=== PATIENT | male | born 1940 | race Caucasian/White ===

== ENCOUNTER 2020-05-31 22:00 | Emergency (ER) | payer MEDICARE ==
--- NOTE | 2020-05-31 22:35 | EDM.PDOC ---
ED HPI GENERAL MEDICAL PROBLEM - General Chief Complaint: General Stated Complaint: ALTERED MENTAL STATUS Time Seen by Provider: 05/31/20 22:20 Source of Information: Reports: Patient, Old Records, RN History Limitations: Reports: No Limitations - History of Present Illness INITIAL COMMENTS - FREE TEXT/NARRATIVE: 79 yo male from out of town was brought into the ER tonight by police when Joe stopped at a gas station near here because he was at that time dizzy and didn't feel comfortable driving while in this condition. He is no longer dizzy. He drove here to buy a cell phone that he says he did get. He doesn't want to drive home tonight as he is now tired. Onset: Today, Sudden Onset Date: 05/31/20 Duration: Resolved Prior to Arrival Location: Reports: Head Quality: Reports: Other (no pain) Severity: Mild Improves with: Reports: Rest Worsens with: Reports: Other (unknown) Context: Reports: Other (See HPI) Associated Symptoms: Reports: Weakness (mild, generalized), Other (dizziness- resolved). 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 (see below) (none) - Related Data Allergies Allergy/AdvReac Type Severity Reaction Status Date / Time No Known Allergies Allergy Verified 05/31/20 22:52 ED ROS GENERAL - Review of Systems Review Of Systems: See Below Constitutional: Reports: Weakness HEENT: Reports: No Symptoms Respiratory: Reports: No Symptoms Cardiovascular: Reports: Lightheadedness Endocrine: Reports: No Symptoms GI/Abdominal: Reports: No Symptoms : Reports: No Symptoms Musculoskeletal: Reports: No Symptoms Skin: Reports: No Symptoms Neurological: Reports: No Symptoms ED EXAM, GENERAL - Physical Exam Exam: See Below Exam Limited By: No Limitations General Appearance: Alert, WD/WN, No Apparent Distress Eye Exam: Bilateral Eye: Normal Inspection Ears: Normal External Exam, Normal Canal, Hearing Grossly Normal, Normal TMs Ear Exam: Bilateral Ear: Auricle Normal, Canal Normal, TM normal Nose: Normal Inspection, No Blood Throat/Mouth: Normal Inspection, Normal Lips, Normal Oropharynx, Normal Voice, No Airway Compromise Head: Atraumatic, Normocephalic Neck: Normal Inspection Respiratory/Chest: No Respiratory Distress, Lungs Clear, Normal Breath Sounds, No Accessory Muscle Use Cardiovascular: Regular Rate, Rhythm, No Edema GI/Abdominal: Soft, Non-Tender Extremities: Normal Inspection, Normal Range of Motion, Non-Tender, No Pedal Edema. No: Pedal Edema Neurological: Alert, Oriented, CN II-XII Intact, Normal Cognition, No Motor/Sensory Deficits Psychiatric: Normal Affect, Normal Mood Skin Exam: Warm, Dry, Intact, Normal Color, No Rash Course - Vital Signs Last Recorded V/S: Last Vital Signs Temp 36.4 C 05/31/20 22:05 Pulse 60 05/31/20 23:16 Resp 16 05/31/20 22:05 BP 177/90 H 05/31/20 23:26 Pulse Ox 99 05/31/20 22:05 - Orders/Labs/Meds Orders: Active Orders 24 hr Category Date Time Status Orthostatic Vital Signs [RC] ASDIRECTED Care 05/31/20 22:35 Active Sodium Bicarbonate Med 05/31/20 23:00 Active 650 mg PO DAILY Sodium Chloride 0.9% [Normal Saline] 1,000 ml Med 05/31/20 23:30 Active IV .BOLUS Medication Orders Sodium Chloride (Normal Saline) 1,000 mls @ 1,000 mls/hr IV .BOLUS ONE Stop: 06/01/20 00:29 Sodium Bicarbonate (Sodium Bicarbonate) 650 mg PO DAILY SOURAV Last Admin: 05/31/20 23:26 Dose: 650 mg Documented by: AMARA Labs: Laboratory Tests 05/31/20 05/31/20 05/31/20 Range/Units 22:09 22:40 22:50 WBC 8.3 (3.2-10.1) x10-3/uL RBC 3.95 (3.90-5.90) x10(6)uL Hgb 11.6 L (12.9-17.7) g/dL Hct 36.1 L (38.3-50.1) % MCV 91.4 (80.8-98.7) fL MCH 29.4 (27.0-33.3) pg MCHC 32.1 (28.7-35.3) g/dL RDW 14.1 (12.4-15.0) % Plt Count 189 (117-477) x10(3)uL Sodium (135-145) mmol/L Potassium (3.5-5.3) mmol/L Chloride (100-110) mmol/L Carbon Dioxide (21-32) mmol/L BUN (7-18) mg/dL Creatinine (0.70-1.30) mg/dL Est Cr Clr Drug Dosing Estimated GFR (MDRD) (>60) BUN/Creatinine Ratio (9-20) Glucose (80-116) mg/dL POC Glucose 140 H (74-100) mg/dL Calcium (8.6-10.2) mg/dL Troponin I (4.0-60.3) pg/mL Urine Color Yellow (YELLOW) Urine Appearance Clear (CLEAR) Urine pH 6.0 (5.0-6.5) Ur Specific [place] 1.020 (1.010-1.025) Urine Protein 500 H (NEGATIVE) mg/dL Urine Glucose (UA) Normal (NORMAL) mg/dL Urine Ketones Negative (NEGATIVE) mg/dL Urine Occult Blood Negative (NEGATIVE) Urine Nitrite Negative (NEGATIVE) Urine Bilirubin Negative (NEGATIVE) Urine Urobilinogen Normal (NEGATIVE) mg/dL Ur Leukocyte Esterase Negative (NEGATIVE) Urine RBC 0-5 (0-5) Urine WBC 0-5 (0-5) Ur Squamous Epith Cells Occasional (NS,R,O) Urine Bacteria Few H (NS) Coarse Granular Casts Few H (NS) 05/31/20 05/31/20 Range/Units 22:50 22:50 WBC (3.2-10.1) x10-3/uL RBC (3.90-5.90) x10(6)uL Hgb (12.9-17.7) g/dL Hct (38.3-50.1) % MCV (80.8-98.7) fL MCH (27.0-33.3) pg MCHC (28.7-35.3) g/dL RDW (12.4-15.0) % Plt Count (117-477) x10(3)uL Sodium 139 (135-145) mmol/L Potassium 4.6 (3.5-5.3) mmol/L Chloride 104 (100-110) mmol/L Carbon Dioxide 21 (21-32) mmol/L BUN 48 H (7-18) mg/dL Creatinine 4.2 H* (0.70-1.30) mg/dL Est Cr Clr Drug Dosing TNP Estimated GFR (MDRD) 14 L (>60) BUN/Creatinine Ratio 11.4 (9-20) Glucose 139 H (80-116) mg/dL POC Glucose (74-100) mg/dL Calcium 8.5 L (8.6-10.2) mg/dL Troponin I 15.4 (4.0-60.3) pg/mL Urine Color (YELLOW) Urine Appearance (CLEAR) Urine pH (5.0-6.5) Ur Specific [place] (1.010-1.025) Urine Protein (NEGATIVE) mg/dL Urine Glucose (UA) (NORMAL) mg/dL Urine Ketones (NEGATIVE) mg/dL Urine Occult Blood (NEGATIVE) Urine Nitrite (NEGATIVE) Urine Bilirubin (NEGATIVE) Urine Urobilinogen (NEGATIVE) mg/dL Ur Leukocyte Esterase (NEGATIVE) Urine RBC (0-5) Urine WBC (0-5) Ur Squamous Epith Cells (NS,R,O) Urine Bacteria (NS) Coarse Granular Casts (NS) Meds: Medications Generic Name Dose Route Start Last Admin Trade Name Freq PRN Reason Stop Dose Admin Sodium Chloride 1,000 mls @ 1,000 mls/hr 05/31/20 23:30 Normal Saline IV 06/01/20 00:29 .BOLUS ONE Sodium Bicarbonate 650 mg 05/31/20 23:00 05/31/20 23:26 Sodium Bicarbonate PO 650 mg DAILY SOURAV Administration Discontinued Medications Generic Name Dose Route Start Last Admin Trade Name Freq PRN Reason Stop Dose Admin Doxazosin Mesylate 4 mg 05/31/20 22:53 05/31/20 23:26 Cardura PO 05/31/20 22:54 4 mg ONETIME ONE Administration Hydralazine HCl 50 mg 05/31/20 22:53 05/31/20 23:26 Apresoline PO 05/31/20 22:54 50 mg NOW STA Administration Metoprolol Tartrate 50 mg 05/31/20 22:54 05/31/20 23:16 Lopressor PO 05/31/20 22:55 50 mg ONETIME ONE Administration Departure - Departure Time of Disposition: 00:50 Disposition: Home, Self-Care 01 Condition: Fair Clinical Impression: Mild dehydration Chronic renal failure Qualifiers: Chronic kidney disease stage: stage 4 (severe) Qualified Code(s): N18.4 - Chronic kidney disease, stage 4 (severe) - Discharge Information *PRESCRIPTION DRUG MONITORING PROGRAM REVIEWED*: Not Applicable *COPY OF PRESCRIPTION DRUG MONITORING REPORT IN PATIENT MATTHEW: Not Applicable Instructions: Chronic Kidney Disease, Adult, [id number] Referrals: PCP,None [Primary Care Provider] - Forms: ED Department Discharge Additional Instructions: I recommend to stay in a hotel tonight locally. Tomorrow morning you need to head for home promptly as you have medications that you will be due for in the morning. See your doctor as soon as possible for recheck(take copies of today's labs with you). Sepsis Event Note (ED) - Focused Exam Vital Signs: Vital Signs Temp Pulse Pulse Resp BP BP Pulse Ox 05/31/20 23:26 177/90 H 05/31/20 23:16 60 177/69 H 05/31/20 22:05 36.4 C 62 16 174/69 H 99 - My Orders Last 24 Hours: My Active Orders 05/31/20 22:35 Orthostatic Vital Signs [RC] ASDIRECTED 05/31/20 23:00 Sodium Bicarbonate 650 mg PO DAILY 05/31/20 23:30 Sodium Chloride 0.9% [Normal Saline] 1,000 ml IV .BOLUS - Assessment/Plan Last 24 Hours: My Active Orders 05/31/20 22:35 Orthostatic Vital Signs [RC] ASDIRECTED 05/31/20 23:00 Sodium Bicarbonate 650 mg PO DAILY 05/31/20 23:30 Sodium Chloride 0.9% [Normal Saline] 1,000 ml IV .BOLUS
[2020-05-31] MEDS ORDERED: Doxazosin 4 MG Tab PO ONE (22:53)
[2020-05-31] MEDS ORDERED: hydrALAZINE 50 MG Tab PO STA (22:53)
[2020-05-31] MEDS ORDERED: Metoprolol Tartrate 50 MG Tab PO ONE (22:54)
[2020-05-31] MEDS: Sodium Bicarbonate 650 MG Tab PO SCH (23:26)
[2020-05-31] MEDS ORDERED: Sodium Chloride 0.9% 1,000 ML IV ONE (23:30)
[2020-06-01] MEDS ORDERED: PARoxetine 20 MG Tab PO ONE (06:43)
[2020-06-01] MEDS ORDERED: Memantine 10 MG Tab PO STA (06:43)
[2020-06-01] MEDS ORDERED: Metoprolol Tartrate 50 MG Tab PO ONE (06:43)
[2020-06-01] MEDS ORDERED: Levothyroxine 100 MCG Tab PO STA (06:44)
[2020-06-01] MEDS ORDERED: Furosemide 20 MG Tab PO ONE (06:45)
[2020-06-01] MEDS ORDERED: amLODIPine 5 MG Tab PO ONE (06:45)
[2020-06-01] MEDS: Sodium Bicarbonate 650 MG Tab PO SCH ×3 (07:09→14:52)
== END 2020-06-01 16:06 | disposition home or self-care (01) ==
LOC: FB.ED 22:00
DX: E86.0 Dehydration (principal); N18.4 Chronic kidney disease, stage 4 (severe)
CPT/HCPCS: 36415; 80048; 81001; 82962; 84484; 85027; 99283; 99284; A9270-GY; J7030